=== PATIENT | female | born 1975 | race Caucasian/White ===

== ENCOUNTER → 2018-08-17 09:07 | Outpatient (POV) | payer MEDICAID, SELFPAY ==
[2018-08-17 09:42] VITALS: BP 138/83; PULSE 78; RESP 18; O2SAT 98
--- NOTE | 2018-08-17 10:58 | HMH.PMCON ---
Assessment and Plan (1) Degenerative joint disease (DJD) of lumbar spine Current visit: Yes Status: Chronic Qualifiers: Spinal osteoarthritis complication: unspecified spinal osteoarthritis Qualified Code(s): M47.816 - Spondylosis without myelopathy or radiculopathy, lumbar region Category: Medical Code(s): M47.816 - Spondylosis without myelopathy or radiculopathy, lumbar region - Assessment and plan all Dx Assessment and Plan for all problems:: Discussed with the patient that I believe that she should be seen by a neurosurgeon promptly. I discussed with her that we would not be writing any pain medication. I also discussed that we would potentially be able to do put a neurostimulator however at this time she is not a narcotic candidate. Patient will follow-up if necessary after neurosurgical consultation. This note was dictated using voice recognition software and may contain errors or omissions HPI - Data of Consult Consult date: 08/17/18 Requesting Physician: Gela Rojas APRN Primary Care Provider: Cristino Nieves - Consult Narrative Reason for consult: Back pain History of present illness: Ms. Navarro is a 43 year old female resents today for consultation in regards to her low back pain. Patient was seen in December and has gone by Dr. Cage. Patient states her neck is doing better however her low back pain has been giving her more trouble. Patient rates her pain a 9 out of 10 she states she has times of incontinence. Patient states she has an MRI however we do not have it. Patient states she had that at [facility]. Patient's been seen by a pain management doctor in [place] and was given an injection however she states that she had no relief. Patient has numbness and tingling in her bilateral legs. Patient states all activity makes it worse well nothing makes it better. Patient states she followed up with Dr. Cage in January however she did not return after this. Patient partner is requesting pain medication today. I discussed that we do not do pain medication on evaluations and we are interventional in nature. CC: Gela Rojas APRN [facility] History I have reviewed the patient's past medical history: Yes - *Social History Smoking Status: Never smoker Alcohol Intake: never Occupational Status: other Housing: house - Psychiatric History Expresses thoughts of harming self/others: None Suicide Plan Description: No Plan *Family Hx:: Unable to obtain Review of Systems - Review of Systems ROS General: no recent weight change, no fever, no sleep disturbances Respiratory: no cough, no shortness of air, no recurring pulmonary infections Cardiovascular/Peripheral Vascular: No chest pain, No palpitations, no edema, no shortness of breath. Gastrointestinal: Incontinence at times Genitourinary: incontinence at times Musculoskeletal: Back pain, leg pain Psychiatric: Anxious Neurological: Weakness in bilateral lower extremities, [denies balance issues] Meds Home Medications Medication Instructions Recorded Confirmed Type Escitalopram Oxalate 10 mg PO DAILY 08/17/18 08/17/18 History Methocarbamol [Methocarbamol 750mg 750 mg PO Q8 08/17/18 08/17/18 History Tab] Objective Vital signs: Pulse Resp BP Pulse Ox 78 18 138/83 98 08/17/18 09:42 08/17/18 09:42 08/17/18 09:42 08/17/18 09:42 Narrative: Physical Exam General: Alert and oriented x3, no acute distress, pleasant and cooperative, [on room air] Lungs: Resps E/U, Symmetrical chest expansion Eyes: PERRL Musculoskeletal: Flexion and extension of lumbar spine somewhat guarded secondary to pain, deep tendon reflexes normal, strength in upper and lower extremities [5/5], [abnormal gait noted] Neurological: speech clear, clinical documentation consultant equal, no gross sensory deficits Opioid Risk Tool - Opioid Risk Tool-Female Family hx alcohol abuse: Y Family hx illegal drugs: N Family
--- NOTE | 2018-08-17 11:01 | P.CONS_ITS ---
Assessment and Plan (1) Degenerative joint disease (DJD) of lumbar spine Current visit: Yes Status: Chronic Qualifiers: Spinal osteoarthritis complication: unspecified spinal osteoarthritis Qualified Code(s): M47.816 - Spondylosis without myelopathy or radiculopathy, lumbar region Category: Medical Code(s): M47.816 - Spondylosis without myelopathy or radiculopathy, lumbar region - Assessment and plan all Dx Assessment and Plan for all problems:: Discussed with the patient that I believe that she should be seen by a neurosurgeon promptly. I discussed with her that we would not be writing any pain medication. I also discussed that we would potentially be able to do put a neurostimulator however at this time she is not a narcotic candidate. Patient will follow-up if necessary after neurosurgical consultation. This note was dictated using voice recognition software and may contain errors or omissions HPI - Data of Consult Consult date: 08/17/18 Requesting Physician: Gela Rojas APRN Primary Care Provider: Cristino Nieves - Consult Narrative Reason for consult: Back pain History of present illness: Ms. Navarro is a 43 year old female resents today for consultation in regards to her low back pain. Patient was seen in December and has gone by Dr. Cage. Patient states her neck is doing better however her low back pain has been giving her more trouble. Patient rates her pain a 9 out of 10 she states she has times of incontinence. Patient states she has an MRI however we do not have it. Patient states she had that at [facility]. Patient's been seen by a pain management doctor in [place] and was given an injection however she states that she had no relief. Patient has numbness and tingling in her bilateral legs. Patient states all activity makes it worse well nothing makes it better. Patient states she followed up with Dr. Cage in January however she did not return after this. Patient partner is requesting pain medication today. I discussed that we do not do pain medication on evaluations and we are interventional in nature. CC: Gela Rojas APRN [facility] History I have reviewed the patient's past medical history: Yes - *Social History Smoking Status: Never smoker Alcohol Intake: never Occupational Status: other Housing: house - Psychiatric History Expresses thoughts of harming self/others: None Suicide Plan Description: No Plan *Family Hx:: Unable to obtain Review of Systems - Review of Systems ROS General: no recent weight change, no fever, no sleep disturbances Respiratory: no cough, no shortness of air, no recurring pulmonary infections Cardiovascular/Peripheral Vascular: No chest pain, No palpitations, no edema, no shortness of breath. Gastrointestinal: Incontinence at times Genitourinary: incontinence at times Musculoskeletal: Back pain, leg pain Psychiatric: Anxious Neurological: Weakness in bilateral lower extremities, [denies balance issues] Meds Home Medications Medication Instructions Recorded Confirmed Type Escitalopram Oxalate 10 mg PO DAILY 08/17/18 08/17/18 History Methocarbamol [Methocarbamol 750mg 750 mg PO Q8 08/17/18 08/17/18 History Tab] Objective Vital signs: Pulse Resp BP Pulse Ox 78 18 138/83 98 08/17/18 09:42 08/17/18 09:42 08/17/18 09:42 08/17/18 09:42
== END ==
PROVIDERS: PCP Pediatrics; Visit Provider Clinical Nurse Specialist Family Health
DX: M47.816 Spondylosis without myelopathy or radiculopathy, lumbar region (principal)
CPT/HCPCS: 99202